=== PATIENT | female | born 1980 | race African-American/Black ===

== ENCOUNTER 2016-07-22 09:44 | Emergency (ER) | payer OTHER ==
[2016-07-22] MEDS ORDERED: TETRACAINE 0.5% HCL 0.6ML DROPPER.BOTTLE OS ONE (09:49)
[2016-07-22] MEDS ORDERED: FLUORESCEIN NA 1 EA STRIP OS ONE (09:49)
--- NOTE | 2016-07-22 09:51 | PDOC ---
History of Present Illness - General Chief Complaint: Eye Problem Stated Complaint: left eye pain Time Seen by Provider: 07/22/16 09:46 History Source: Patient Exam Limitations: No Limitations - History of Present Illness Initial Comments: 07/22/16 09:50 35-year-old female with no past medical history presents to the emergency department for left eye irritation since yesterday. The patient works in a [employer]. One of the kids smashed a glass and felt something hit her eye. She wears contact lenses. She has flushed not significantly but reported some left eye discomfort. Denies changes in visual acuity. Because of the persistence discomfort, patient came for further evaluation. Past History - Past Medical History Allergies/Adverse Reactions: Allergies Allergy/AdvReac Type Severity Reaction Status Date / Time No Known Allergies Allergy Verified 07/22/16 09:44 Home Medications: Ambulatory Orders Phenazopyridine HCl [Pyridium] 200 mg PO TID PRN #20 tablet 06/21/14 Ciprofloxacin HCl [Cipro] 500 mg PO BID 07/22/16 Metronidazole 500 mg PO BID 07/22/16 Tobramycin 0.3% Ophth Oint [Tobrex *Ophthalmic Ointment*] 1 applic OS TID #1 tube 07/22/16 - Immunization History Immunization Up to Date: Yes - Psycho/Social/Smoking Cessation Hx Anxiety: No Suicidal Ideation: No Smoking History: Never smoked Hx Alcohol Use: Yes (occasional) Drug/Substance Use Hx: No Substance Use Type: None Review of Systems - Review of Systems Able to Perform ROS?: Yes Comments:: 07/22/16 09:50 GENERAL/CONSTITUTIONAL: No fever, weakness. HEAD, EYES, EARS, NOSE AND THROAT: No change in vision. No ear pain or discharge. No sore throat. +Left eye pain. CARDIOVASCULAR: No chest pain or shortness of breath. RESPIRATORY: No cough, wheezing, or hemoptysis. GASTROINTESTINAL: No abdominal pain, nausea, vomiting, diarrhea, or decreased PO intolerance. GENITOURINARY: No dysuria, frequency, or change in urination. MUSCULOSKELETAL: No joint or muscle swelling or pain. No neck or back pain. SKIN: No rash NEUROLOGIC: No headache, vertigo, loss of consciousness, or change in strength/ sensation. ENDOCRINE: No increased thirst. No abnormal weight change. HEMATOLOGIC/LYMPHATIC: No anemia, easy bleeding, or history of blood clots. ALLERGIC/IMMUNOLOGIC: No hives or skin allergy. *Physical Exam - Physical Exam Comments: 07/22/16 11:25 GENERAL: Awake, alert, and fully oriented, in no acute distress. HEAD: No signs of trauma EYES: PERRLA, EOMI, sclera anicteric, conjunctiva clear. Fluorescein demonstrates OS: abrasion uptake in the inferior sclear, appox 1x1 cm. No siedel sign. ENT: Auricles normal inspection, hearing grossly normal, nares patent, oropharynx clear without exudates. NECK: Normal ROM, supple, no lymphadenopathy, JVD, or masses LUNGS: Breath sounds equal, clear to auscultation bilaterally. No wheezes, and no crackles HEART: Regular rate and rhythm, normal S1 and S2, no murmurs, rubs or gallops ABDOMEN: Soft, nontender, normoactive bowel sounds. No guarding, no rebound. No masses EXTREMITIES: Normal range of motion, no edema. No clubbing or cyanosis. No cords, erythema, or tenderness NEUROLOGICAL: Cranial nerves II through XII grossly intact. Normal speech, normal gait SKIN: Warm, Dry, normal turgor, no rashes or lesions noted. Medical Decision Making - Medical Decision Making 07/22/16 11:26 Vital Signs Temp Pulse Resp BP Pulse Ox 98.4 F 71 20 128/71 99 07/22/16 09:44 07/22/16 09:44 07/22/16 09:44 07/22/16 09:44 07/22/16 09:44 At this time, there appears to be no jose raul sign and appears to have an abrasion at the lower sclera. However, given that there is a FB sensation and reportedly small pieces of shattered glass, will CT scan orbits to r/o FB. 07/22/16 11:47 CT orbits unremarkable. Will prescribe tobrex optho ointment and have pt follow up with optho I discussed the physical exam findings, ancillary test results and final diagnoses with the patient. I answered all of the patient's questions. The patient was satisfied with the care received and felt comfortable with the discharge plan and treatment plan. The patient will call their primary care physician within 24 hours to arrange follow-up and will return to the Emergency Department with any new, persistant or worsening symptoms. 07/22/16 11:52 VA with contact lenses. OS: 20/30 OD: 20/25 *DC/Admit/Observation/Transfer Diagnosis at time of Disposition: Abrasion of sclera of left eye Qualifiers: Encounter type: initial encounter Qualified Code(s): S05.8X2A - Other injuries of left eye and orbit, initial encounter - Discharge Dispostion Disposition: HOME Condition at time of disposition: Stable Admit: No - Prescriptions Prescriptions: Tobramycin 0.3% Ophth Oint [Tobrex *Ophthalmic Ointment*] 1 applic OS TID #1 tube - Referrals Referrals: Reginald Neumann MD [Staff Physician] - - Patient Instructions Printed Discharge Instructions: DI for Corneal Abrasion Additional Instructions: You have an abrasion of your left sclera. Take 600 mg ibuprofen every 6 hours as needed for pain. Do not wear your contact lenses until your pain is resolved or cleared by an eye doctor. Use the tobrex (antibiotic) ointment every 8 hours for the next week. Follow up with an eye doctor this week. - Post Discharge Activity Work/School Note: Back to Work
[2016-07-22 09:52] VITALS: BP 128/71; PULSE 71; TEMP 98.4; BMI 23.2
[2016-07-22] MEDS ORDERED: FLUORESCEIN NA 1 EA STRIP ONE (09:53)
[2016-07-22] MEDS ORDERED: TETRACAINE 0.5% OPHTH SOLN 2 ML BOTTLE ONE (09:53)
== END 2016-07-22 11:58 | disposition home or self-care (01) ==
LOC: FER 09:44
DX: S05.8X2A Other injuries of left eye and orbit, initial encounter (principal); W20.8XXA Other cause of strike by thrown, projected or falling object, initial encounter; Y93.9 Activity, unspecified; Y92.89 Other specified places as the place of occurrence of the external cause; Y99.0 Civilian activity done for income or pay
CPT/HCPCS: 70480-TC; 84703; 99282-25